=== PATIENT | female | born 1950 | race Caucasian/White ===

== ENCOUNTER 2016-08-27 10:24 | Inpatient (IN) | payer OTHER ==
--- NOTE | ~2016-08-27 | DS ---
Discharge Summary [facility] [address] [place] [place]. [address] NAME: RENATA JONES : 46 STATUS : DIS IN PAT#: [id number] AGE: 66 ADM/REG DATE : 08/27/16 MR#: [id number] REPORT SERV DATE: 09/02/16 DICTATED BY: CE SIMPSON DATE: 09/01/16 REPORT STATUS : Draft TRANSCRIBED BY: MODL DATE: 09/01/16 ADMISSION DATE: 08/27/2016 DISCHARGE DATE: 09/01/2016 DIAGNOSES OF DISCHARGE: 1. Urinary tract infection with urine culture Escherichia coli. 2. Metabolic encephalopathy, resolved. 3. Acute kidney injury on chronic kidney disease, resolved. 4. History of cerebrovascular accident. 5. Obstructive sleep apnea. 6. Diabetes type 2. 7. Chronic diarrhea. 8. History of Clostridium difficile. 9. History of gout. 10.Peripheral arterial disease with history of right carotid artery stent and leg stent. CONSULTANTS ON THE CASE: None. PROCEDURE DONE DURING THIS HOSPITALIZATION: None. TEST DONE DURING THIS HOSPITALIZATION: Include a 2D echo on 09/01/2016 showing normal left ventricular systolic function, ejection fraction 60% and normal right ventricular chamber size and systolic function with mild MR. Also, during this hospitalization, the patient had done CT of brain without contrast on 08/19/[address] of the brain. CT of the abdomen and pelvis showed a mild prominence of the right renal collecting system and proximal ureter, but there are no stones identified within the ureter or urinary bladder. There was a right lower lobe consolidation, questionable atelectasis, bilateral renal cyst, bowel anastomosis on the right abdomen likely ileocolic anastomosis. Chest x-ray, portable, on 08/28/2016, showed mild bibasilarly infiltrates with small left pleural effusion. Repeat chest x-ray on 08/31/2016 show a clear chest x-ray, just atelectasis, and mild central venous congestion. The patient's blood cultures have remained negative at discharge. Her stools for C. diff performed on 08/19/2016 has been negative and her urine cultures grew Klebsiella pneumonia. HOSPITAL COURSE: This is a very pleasant 66-year-old female, patient of Dr. Daren Husain, her primary care provider. She does have a history of chronic diarrhea, evaluated by Dr. Ordoñez in the past, recurrent urinary tract infections, history of diabetes insulin-dependent, chronic kidney disease, COPD, obstructive sleep apnea. She has been admitted on 08/27/2016 with acute kidney injury as well as the changes in the mental status and urinary tract infection. For further details, please see history and physical exam of Dr. Alhaji Cummings. The patient has been admitted to Hospitalist Service. She has been aggressively hydrated and placed on a broad-spectrum antibiotics, initially on Azactam and Flagyl due to a history of Clostridium diff. Her diff came back negative. Her Flagyl has been discontinued and continued on Azactam. The patient has been placed on oxygen and bronchodilator protocol. Her urine cultures have came back with Klebsiella pneumonia. She has been changed to oral antibiotics. Her encephalopathy continued to improve and completely resolved with control Discharge Summary [address] [place]. [address] NAME: RENATA JONES : 46 STATUS : DIS IN PAT#: [id number] AGE: 66 ADM/REG DATE : 08/27/16 MR#: [id number] REPORT SERV DATE: 09/02/16 DICTATED BY: CE SIMPSON DATE: 09/01/16 REPORT STATUS : Draft TRANSCRIBED BY: MARGE DATE: 09/01/16 of the infection as well as correction of her acute renal failure. She did have a 2D echo showing a normal left ventricular systolic function with an ejection fraction of 60% and normal right ventricular chamber size and systolic function. On 09/01/2016, the patient has been ready for discharge. She has been evaluated by Physical Therapy and recommendation for the patient was to go home with home health and home physical therapy. MEDICATIONS AT DISCHARGE: Would include allopurinol 100 p.o. daily, Xanax 1 mg p.o. b.i.d., Norvasc 5 mg at bedtime, Lexapro 20 mg at bedtime, Lasix 40 p.o. daily, gabapentin 900 twice a day, Levemir 22 units subcutaneously twice a day, Requip 4 mg at bedtime, Cozaar 10 mg at bedtime, Aldactone 25 mg at bedtime, Afrin nasal spray at bedtime as needed, as well as Imodium p.r.n., Carbon p.r.n., insulin sliding scale, Humalog and baclofen p.r.n. She will also be discharged on Ceftin 500 p.o. b.i.d. for five more days. We will arrange home health and home PT. We will also arrange a primary care provider follow up with Dr. Daren Husain in one week after discharge with BNP check. That has been discussed extensively with the patient. All the questions have been answered in full. I have spent more than 30 minutes at discharging the patient, Analia Caballero, medication reconciliation, discharge summary, discharge instructions, written prescriptions as well. CF/MODL eC Simpson M.D. / [id number] CC: Lorrie Holt M.D.
--- NOTE | ~2016-08-27 | HP ---
History And Physical [facility] [id number] [place]. [address] NAME: RENATA JONES : 46 STATUS : ADM IN [facility]#: [id number] AGE: 66 ADM/REG DATE : 08/27/16 MR#: [id number] REPORT SERV DATE: 08/27/16 DICTATED BY: HERIBERTO ANTONIO DATE: 08/27/16 REPORT STATUS : Draft TRANSCRIBED BY: MARGE DATE: 08/27/16 DATE OF ADMISSION: 08/27/2016 GI: Dennis Ordoñez M.D. HISTORY OF PRESENT ILLNESS: This is a 66-year-old female, who comes in for change in mental status. The patient has a history of chronic diarrhea which she has been evaluated by Dr. Ordoñez before and they did not believe that it is anything that needs to do a procedure on. The patient also has a history of recurrent UTI, and the daughter is saying that she presented like she is having one of those times when she has the UTI. She also has a history of diabetes, Clostridium difficile, PAD, CKD, COPD, BRENDEN in which she cannot tolerate the CPAP and uses 2 L of oxygen all the time. The patient went to stay with a friend since Tuesday which is 5 days prior to admission and she did not bring her oxygen tank. She worked in the yard 2 days prior to present admission, and she started having increased back pain on top of her chronic back pain which she takes hydrocodone for it. The next day, one day prior to admission, the patient was feeling weak, she just stayed in bed, slept a lot, and then at nighttime, they got worried because she was having chills and talking out of her head. They noted some jerking and they believe it was her nerves, they gave her some Xanax, and she got little bit better in terms of the jerking part. Today, she still was not doing well, so they brought her to the emergency room. In the ER, the patient has a temperature of 103, blood pressure was okay initially but it went down to the 80s. She was given fluids and her mental status, blood pressure got better. We are now going to admit this patient for possible UTI as the urine was cloudy and dirty. She said that she did not have any dysuria until they collected her urine today. It was a clean catch and they did not use any catheter. She also had diarrhea this morning as well. In both ends there was no blood. REVIEW OF SYSTEMS: The patient denies any abdominal pain or chest pain. She only complains of back pain, which is chronic and not like the one that she felt two days ago. She did not have any near syncopal or syncopal episode. She denies any dizziness she felt warm but she did not document any fever prior to coming in here. There are no sweats. There are no new rashes. No new joint pains. There is no cough. She denies any shortness of breath. The rest of the 14-point review of systems is negative except as above. PAST MEDICAL HISTORY: Includes COPD, BRENDEN, recurrent UTI, CKD 3 with baseline creatinine of 1.3 to 1.6, diabetes, PAD with carotid stent on the right, leg stent, irritable bowel syndrome, chronic diarrhea type, CVA in 1998 without any residuals, chronic pain, glaucoma, dyslipidemia, B12 deficiency, history of pancreatitis, gout. She had a lumbar spine surgery, spinal nerve stimulator, right carotid endarterectomy, appendectomy, cholecystectomy, hysterectomy with oophorectomy, partial colectomy, adhesiolysis x4. ALLERGIES: CODEINE. MEDICATIONS: Includes allopurinol, Xanax, Norvasc, Lexapro, TriCor, Lasix, Neurontin, hydrocodone, losartan, Requip, spironolactone. History And Physical [address] [place] [place]. [address] NAME: RENATA JONES : 46 STATUS : ADM IN [facility]#: [id number] AGE: 66 ADM/REG DATE : 08/27/16 MR#: [id number] REPORT SERV DATE: 08/27/16 DICTATED BY: HERIBERTO ANTONIO DATE: 08/27/16 REPORT STATUS : Draft TRANSCRIBED BY: MODL DATE: 08/27/16 FAMILY HISTORY: Father of lung cancer at 74 years of age. Mother of Parkinson disease and stroke at 71 years of age. SOCIAL HISTORY: The patient denies smoking, drinking alcohol, or use recreational drugs. PHYSICAL EXAMINATION: GENERAL: The patient is obese, alert, oriented x3, not in cardiorespiratory distress. VITAL SIGNS: Include a temperature of 103, blood pressure of 139/55, pulse rate of 79, respiration 23, saturating at 98% on 2 L. NECK: She has supple neck. No JVD or carotid bruits. No lymphadenopathy. HEENT: [place] conjunctivae. Anicteric sclerae. No pharyngeal erythema. LUNGS: Clear lungs. No rales. No wheezes. CARDIOVASCULAR: Regular rate and rhythm. No murmurs appreciated. Positive bowel sounds. Soft, nontender. No masses. Fair pulses. No edema. NEURO: Nonlocalizing. LABORATORY DATA: Reveals a pH of 7.41, pCO2 of 22, PO2 of 120 at 20% FiO2. BUN and creatinine of 63 and 2.9, glucose of 284. Alkaline phosphatase of 124, AST of 53 the rest of the chemistry is within acceptable limits. Ammonia 43, lactate 0.6. White count 10.3, H and H of 9.4 and 28.8. The rest of the CBC is within acceptable limits. Urinalysis shows protein of 100, large leukocyte esterase, 26 rbc, greater than 182 wbc. CAT scan of the brain shows no acute intracranial abnormality, atrophy, chronic microvascular white matter ischemic change. Chest x-ray shows cephalization of pulmonary blood flow, representing early volume overload or pulmonary edema. No other acute process demonstrated. ASSESSMENT: 1. Acute toxic encephalopathy with history of cerebrovascular accident. 2. Urinary tract infection. 3. Acute kidney injury on chronic kidney disease 3. 4. Obstructive sleep apnea. 5. Chronic obstructive pulmonary disease. 6. Diabetes with hyperglycemia. 7. Peripheral arterial disease with history of right carotid artery stent and leg stent. 8. History of Clostridium difficile. 9. History of gout. 10.Chronic diarrhea. 11.Irritable bowel syndrome, questionable colitis. PLAN: The patient possibly had a UTI, colitis, or both, causing dehydration and LEE on top of CKD and change in mental status. The patient improved with IVF and her mental status is back to normal. We will admit to telemetry. Continue IVF, but we will use aztreonam and Flagyl as she has a history of Clostridium difficile. Check urine, stool, and blood cultures; monitor creatinine; place on oxygen, bronchodilator; we will continue the diabetic History And Physical [address] [address] NAME: RENATA JONES : 46 STATUS : ADM IN [facility]#: [id number] AGE: 66 ADM/REG DATE : 08/27/16 MR#: [id number] REPORT SERV DATE: 08/27/16 DICTATED BY: HERIBERTO ANTONIO. DATE: 08/27/16 REPORT STATUS : Draft TRANSCRIBED BY: MARGE DATE: 08/27/16 medications. We will do a CT of the abdomen and pelvis, and see if the patient has colitis or any risk factors for causing her to have frequent UTI, this has been explained to the patient in front of the daughter, and they agreed and understood the plan. RAMONE/MARGE Heriberto Antonio M.D. / [id number] CC: Lorrie Wu M.D.
[2016-08-27 10:21] LABS: ALLENS TEST Pos; BE (BASE EXCESS) -9.7 MEQ/L (0 +/- 2.5); CARBOXYHEMOGLOBIN 0.6 % (0-3); HCO3 (ACTUAL BICARBONATE) 13.4 MEQ/L (23-27); INSTRUMENT SERIAL # 8087; METHEMOGLOBIN 0.3 % (0-3); O2 CONTENT 13.7 VOL% (18-24); PCO2 (CO2 TENSION) 22 MMHG (35-45); PO2 (O2 TENSION) 120 MMHG (79-93); SAMPLE Arterial; pH 7.41 (7.37-7.43)
[~2016-08-27 10:24] MED LIST: *UNABLE2; ACTOS45 PO; ADVIL PM PO; AFRIN15 NAS; ASA5GR PO; B121000P IM; B121000P IM/SC; BEN25 PO; CARDURA1 MG PO; CARVEDILOL PO; CAT2 PO; CEFT5 PO; COMBIVENT INH; COREG3 PO; COZAAR100 MG PO; CYMBALTA60 PO; DCN100 PO; DIAMODE2 MG PO; DIOVAN320 MG PO; FLEX PO; FLORASTOR250 MG PO; GOODY'S BODY P1 EACH PO; GOODYS PM1 POW OR; HUMALOG SC; IMOD PO; KLONOPIN WAF2 MG PO; KLOR-CON 1010 MEQ PO; KLOR-CON M1010 MEQ PO; L20 PO; L40 PO; LEVAQUIN750 MG PO; LEVEMFLXPN SC; LEXAPRO10 PO; LEXAPRO20 PO; LIOR10 PO; LOFIB160 PO; MICRO-K10 MEQ PO; MOTRIN IB200 MG PO; NEUR100 PO; NEUR300 PO; NORCO1 TA1 PO; NORCO1 TAB PO; NORV10 PO; NORV5 PO; NOVOLOG SC; O2; PENICILLN VK500 MG PO; PERCOCET1 TA2 PO; PLAVIX PO; POTASSIUM OTC PO; PRAND5 PO; PRAVACHOL40 MG PO; PREV30 PO; PROAIR HFA INH; PROMEGA PO; PROVHFA INH; REQUIP1 PO; REQUIP2 PO; REQUIP4 MG PO; REQUIP5 MG PO; SPIRO25 PO; STERAPRED DS10 MG; TRICOR145 PO; TRILIPIX135 MG PO; X5 PO; XANAX XR1 MG PO; XANAX1 MG PO; XANAX2 MG PO; Z100 PO; vancomycin PO
[2016-08-27 11:23] LABS: BASOPHILS 0.5 %; BASOPHILS ABSOLUTE 0.05 10/3/uL (0.0-0.16); EOSINOPHILS 0.3 %; EOSINOPHILS ABSOLUTE 0.03 10/3/uL (0.0-0.53); HEMOGLOBIN 9.4 g/dL (12.0-16.0); IMMATURE GRANULOCYTES 0.5 %; LYMPHOCYTES 12.8 %; LYMPHOCYTES ABSOLUTE 1.32 10/3/uL (0.67-4.30); MEAN CORPUS HGB CONC 32.6 g/dL (32.0-36.0); MEAN CORPUSCULAR HEMOGLOB 31.4 pg (26.0-34.0); MEAN CORPUSCULAR VOLUME 96.3 fL (80-100); MEAN PLATELET VOLUME 10.3 fL (9.2-13.0); MONOCYTES 6.9 %; MONOCYTES ABSOLUTE 0.71 10/3/uL (0.21-1.20); NEUTROPHILS ABSOLUTE 8.16 10/3/uL (2.02-8.40); PLATELET COUNT 306 10/3/uL (150-400); RED CELL COUNT 2.99 10/6/uL (4.0-5.6)
[2016-08-27 11:24] LABS: ER CBC TAT 0 Hrs 07 Mins; HEMATOCRIT 28.8 % (36.0-48.0); IMMATURE GRANULOCYTES ABSOLUTE 0.05 10/3/uL (0.0-0.11); MANUAL DIFF NO %; RBC DISTRIBUTION WIDTH 16.6 % (12.0-16.0); WHITE BLOOD CELLS 10.3 10/3/uL (4.5-10.5)
[2016-08-27 11:33] LABS: INTERNATIONAL NORMAL RATI 1.2 UNITS (-); PARTIAL THROMBO TIME 31.2 SEC (22.5-37.2)
[2016-08-27 11:37] LABS: ALBUMIN 2.9 G/DL (3.5-5.0); CHLORIDE, SERUM 106 MMOL/L (96-112); POTASSIUM, SERUM 4.1 MMOL/L (3.5-5.3); SGOT(AST) 53 U/L (5-40); SGPT(ALT) 22 U/L (5-65); SODIUM, SERUM 136 MMOL/L (135-148); TOTAL BILIRUBIN 0.5 MG/DL (0-1.2)
[2016-08-27 11:39] LABS: A/G RATIO 0.6 (0.7-1.9); ALKALINE PHOSPHATASE 124 U/L (45-117); BUN (BLOOD UREA NITROGEN) 63 MG/DL (6-23); CO2 (CARBON DIOXIDE) 17 MMOL/L (24-34); GFR AFRICAN AMERICAN 19 ML/MIN (>=60); GFR NON AFRICAN AMERICAN 16 ML/MIN (>=60); GLOBULIN 5.2 G/DL (2.5-4.1); GLUCOSE, SERUM 284 MG/DL (60-99); TOTAL PROTEIN 8.1 G/DL (6.0-8.5)
[2016-08-27 11:40] LABS: LACTATE 0.6 MMOL/L (0.3-2.4)
[2016-08-27 11:49] LABS: BAND NEUTROPHILS 8 %; ER DIFF TAT 0 Hrs 32 Mins; LYMPHOCYTES 11 %; LYMPHOCYTES ABSOLUTE (CALC) 1.13 10/3/uL (0.67-4.30); MONOCYTES 5 %; MONOCYTES ABSOLUTE (CALC) 0.52 10/3/uL (0.21-1.20); NEUTROPHILS ABSOLUTE (CALC) 8.65 10/3/uL (2.02-8.40); PLATELET ESTIMATE ADQ (ADEQUATE); RBC MORPHOLOGY NORM (NORMAL); SEGMENTED NEUTROPHIL (0) 76 %; TOTAL NUCLEATED CELLS 100
[2016-08-27 11:59] LABS: ASCORBIC ACID (UR NOT ORDER) NEG (NEG); BILIRUBIN, URINE NEGATIVE (NEG); ER URINALYSIS TAT 0 Hrs 29 Mins; KETONE, URINE NEGATIVE (NEG); LEUKOCYTE ESTERASE(NOT OR LARGE (NEG); NITRITE (URINE) NEG (NEG); WBC (NOT ORDERED) (RFLEX) > 182 (0-5)
[2016-08-27 12:40] LABS: PROCALCITONIN 0.89 ng/mL (<0.5)
[2016-08-27] MEDS ORDERED: LIOR10 PO (13:59)
[2016-08-28 06:10] LABS: BASOPHILS 0.3 %; BASOPHILS ABSOLUTE 0.04 10/3/uL (0.0-0.16); EOSINOPHILS 0.1 %; EOSINOPHILS ABSOLUTE 0.01 10/3/uL (0.0-0.53); HEMOGLOBIN 10.5 g/dL (12.0-16.0); IMMATURE GRANULOCYTES 0.5 %; IMMATURE GRANULOCYTES ABSOLUTE 0.06 10/3/uL (0.0-0.11); LYMPHOCYTES 18.4 %; LYMPHOCYTES ABSOLUTE 2.13 10/3/uL (0.67-4.30); MEAN CORPUS HGB CONC 32.1 g/dL (32.0-36.0); MEAN CORPUSCULAR HEMOGLOB 31.4 pg (26.0-34.0); MEAN CORPUSCULAR VOLUME 97.9 fL (80-100); MEAN PLATELET VOLUME 9.7 fL (9.2-13.0); MONOCYTES 8.8 %; MONOCYTES ABSOLUTE 1.02 10/3/uL (0.21-1.20); NEUTROPHILS 71.9 %; NEUTROPHILS ABSOLUTE 8.33 10/3/uL (2.02-8.40); PLATELET COUNT 300 10/3/uL (150-400); RBC DISTRIBUTION WIDTH 16.3 % (12.0-16.0); RED CELL COUNT 3.34 10/6/uL (4.0-5.6); WHITE BLOOD CELLS 11.6 10/3/uL (4.5-10.5)
[2016-08-28 06:12] LABS: HEMATOCRIT 32.7 % (36.0-48.0); MANUAL DIFF NO %
[2016-08-28 06:19] LABS: BUN (BLOOD UREA NITROGEN) 40 MG/DL (6-23); CALCIUM, SERUM 9.7 MG/DL (8.5-10.4); CHLORIDE, SERUM 112 MMOL/L (96-112); CO2 (CARBON DIOXIDE) 19 MMOL/L (24-34); CREATININE 1.92 MG/DL (0.55-1.02); GFR AFRICAN AMERICAN 30 ML/MIN (>=60); GFR NON AFRICAN AMERICAN 26 ML/MIN (>=60); GLUCOSE, SERUM 214 MG/DL (60-99); POTASSIUM, SERUM 3.9 MMOL/L (3.5-5.3); SODIUM, SERUM 142 MMOL/L (135-148)
[2016-08-29 05:48] LABS: BASOPHILS 0.3 %; BASOPHILS ABSOLUTE 0.04 10/3/uL (0.0-0.16); EOSINOPHILS 0.4 %; EOSINOPHILS ABSOLUTE 0.05 10/3/uL (0.0-0.53); HEMATOCRIT 28.8 % (36.0-48.0); HEMOGLOBIN 9.2 g/dL (12.0-16.0); IMMATURE GRANULOCYTES 0.6 %; IMMATURE GRANULOCYTES ABSOLUTE 0.07 10/3/uL (0.0-0.11); LYMPHOCYTES 14.4 %; LYMPHOCYTES ABSOLUTE 1.65 10/3/uL (0.67-4.30); MEAN CORPUS HGB CONC 31.9 g/dL (32.0-36.0); MEAN CORPUSCULAR HEMOGLOB 30.8 pg (26.0-34.0); MEAN CORPUSCULAR VOLUME 96.3 fL (80-100); MEAN PLATELET VOLUME 10.1 fL (9.2-13.0); MONOCYTES 8.4 %; MONOCYTES ABSOLUTE 0.96 10/3/uL (0.21-1.20); NEUTROPHILS 75.9 %; NEUTROPHILS ABSOLUTE 8.71 10/3/uL (2.02-8.40); PLATELET COUNT 311 10/3/uL (150-400); RBC DISTRIBUTION WIDTH 16.3 % (12.0-16.0); RED CELL COUNT 2.99 10/6/uL (4.0-5.6); WHITE BLOOD CELLS 11.5 10/3/uL (4.5-10.5)
[2016-08-29 05:49] LABS: MANUAL DIFF NO %
[2016-08-29 06:03] LABS: CALCIUM, SERUM 9.4 MG/DL (8.5-10.4); CHLORIDE, SERUM 110 MMOL/L (96-112); CO2 (CARBON DIOXIDE) 19 MMOL/L (24-34); CREATININE 1.44 MG/DL (0.55-1.02); GFR AFRICAN AMERICAN 43 ML/MIN (>=60); GFR NON AFRICAN AMERICAN 37 ML/MIN (>=60); POTASSIUM, SERUM 3.6 MMOL/L (3.5-5.3); SODIUM, SERUM 139 MMOL/L (135-148)
[2016-08-29 06:04] LABS: BUN (BLOOD UREA NITROGEN) 23 MG/DL (6-23); GLUCOSE, SERUM 135 MG/DL (60-99)
[2016-08-30 07:39] LABS: HEMATOCRIT 28.9 % (36.0-48.0); HEMOGLOBIN 9.3 g/dL (12.0-16.0); MEAN CORPUS HGB CONC 32.2 g/dL (32.0-36.0); MEAN CORPUSCULAR HEMOGLOB 30.9 pg (26.0-34.0); MEAN PLATELET VOLUME 9.9 fL (9.2-13.0); PLATELET COUNT 314 10/3/uL (150-400); RBC DISTRIBUTION WIDTH 16.1 % (12.0-16.0); RED CELL COUNT 3.01 10/6/uL (4.0-5.6); WHITE BLOOD CELLS 12.3 10/3/uL (4.5-10.5)
[2016-08-30 07:40] LABS: MANUAL DIFF YES %
[2016-08-30 07:48] LABS: BUN (BLOOD UREA NITROGEN) 17 MG/DL (6-23); CHLORIDE, SERUM 114 MMOL/L (96-112); CO2 (CARBON DIOXIDE) 18 MMOL/L (24-34); CPK 165 U/L (0-200); CREATININE 1.07 MG/DL (0.55-1.02); GFR AFRICAN AMERICAN 62 ML/MIN (>=60); GFR NON AFRICAN AMERICAN 53 ML/MIN (>=60); GLUCOSE, SERUM 97 MG/DL (60-99); POTASSIUM, SERUM 3.3 MMOL/L (3.5-5.3); SODIUM, SERUM 141 MMOL/L (135-148); TROPONIN I <0.02 NG/ML (<0.05)
[2016-08-30 08:07] LABS: BAND NEUTROPHILS 15 %; EOSINOPHILS 2 %; EOSINOPHILS ABSOLUTE (CALC) 0.25 10/3/uL (0.0-0.53); IMMATURE GRANS ABSOLUTE (CALC) 0.12 10/3/uL (0.0-0.11); LYMPHOCYTES 9 %; LYMPHOCYTES ABSOLUTE (CALC) 1.11 10/3/uL (0.67-4.30); METAMYELOCYTES 1 %; MONOCYTES 8 %; MONOCYTES ABSOLUTE (CALC) 0.98 10/3/uL (0.21-1.20); NEUTROPHILS ABSOLUTE (CALC) 9.84 10/3/uL (2.02-8.40); PLATELET ESTIMATE ADQ (ADEQUATE); SEGMENTED NEUTROPHIL (0) 65 %; TOTAL NUCLEATED CELLS 100
[2016-08-30 08:08] LABS: POLYCHROMASIA 1+ (2-5/OIF) (0-1/OIF)
[2016-08-31 06:44] LABS: BASOPHILS 0.3 %; BASOPHILS ABSOLUTE 0.03 10/3/uL (0.0-0.16); EOSINOPHILS 3.6 %; EOSINOPHILS ABSOLUTE 0.34 10/3/uL (0.0-0.53); HEMATOCRIT 26.7 % (36.0-48.0); HEMOGLOBIN 8.4 g/dL (12.0-16.0); IMMATURE GRANULOCYTES ABSOLUTE 0.19 10/3/uL (0.0-0.11); LYMPHOCYTES 16.2 %; LYMPHOCYTES ABSOLUTE 1.53 10/3/uL (0.67-4.30); MEAN CORPUS HGB CONC 31.5 g/dL (32.0-36.0); MEAN CORPUSCULAR HEMOGLOB 30.2 pg (26.0-34.0); MONOCYTES 6.2 %; MONOCYTES ABSOLUTE 0.59 10/3/uL (0.21-1.20); NEUTROPHILS 71.7 %; NEUTROPHILS ABSOLUTE 6.78 10/3/uL (2.02-8.40); PLATELET COUNT 352 10/3/uL (150-400); RBC DISTRIBUTION WIDTH 16.4 % (12.0-16.0); RED CELL COUNT 2.78 10/6/uL (4.0-5.6); WHITE BLOOD CELLS 9.5 10/3/uL (4.5-10.5)
[2016-08-31 06:45] LABS: MANUAL DIFF NO %
[2016-08-31 07:01] LABS: BUN (BLOOD UREA NITROGEN) 17 MG/DL (6-23); CALCIUM, SERUM 9.5 MG/DL (8.5-10.4); CHLORIDE, SERUM 112 MMOL/L (96-112); CO2 (CARBON DIOXIDE) 20 MMOL/L (24-34); CREATININE 1.01 MG/DL (0.55-1.02); GFR AFRICAN AMERICAN 66 ML/MIN (>=60); GFR NON AFRICAN AMERICAN 57 ML/MIN (>=60); GLUCOSE, SERUM 77 MG/DL (60-99); POTASSIUM, SERUM 3.4 MMOL/L (3.5-5.3); SODIUM, SERUM 141 MMOL/L (135-148); TROPONIN I <0.02 NG/ML (<0.05)
[2016-08-31 10:36] LABS: FERRITIN 258 NG/ML (8-252)
[2016-08-31 10:39] LABS: % IRON SAT 14 % (20-50); FOLATE 9.3 NG/ML (>5.2); IRON BINDING CAPACITY 236 MCG/DL (225-410); IRON, SERUM 34 MCG/DL (35-150)
[2016-09-01 06:04] LABS: BASOPHILS 1.1 %; BASOPHILS ABSOLUTE 0.08 10/3/uL (0.0-0.16); BUN (BLOOD UREA NITROGEN) 21 MG/DL (6-23); CALCIUM, SERUM 9.6 MG/DL (8.5-10.4); CHLORIDE, SERUM 112 MMOL/L (96-112); CO2 (CARBON DIOXIDE) 20 MMOL/L (24-34); CREATININE 0.99 MG/DL (0.55-1.02); EOSINOPHILS ABSOLUTE 0.44 10/3/uL (0.0-0.53); GFR AFRICAN AMERICAN 68 ML/MIN (>=60); GFR NON AFRICAN AMERICAN 59 ML/MIN (>=60); GLUCOSE, SERUM 109 MG/DL (60-99); HEMATOCRIT 28.4 % (36.0-48.0); HEMOGLOBIN 8.9 g/dL (12.0-16.0); IMMATURE GRANULOCYTES 3.7 %; IMMATURE GRANULOCYTES ABSOLUTE 0.27 10/3/uL (0.0-0.11); LYMPHOCYTES 23.3 %; LYMPHOCYTES ABSOLUTE 1.72 10/3/uL (0.67-4.30); MEAN CORPUS HGB CONC 31.3 g/dL (32.0-36.0); MEAN CORPUSCULAR HEMOGLOB 30.1 pg (26.0-34.0); MEAN CORPUSCULAR VOLUME 95.9 fL (80-100); MEAN PLATELET VOLUME 9.8 fL (9.2-13.0); MONOCYTES 4.9 %; MONOCYTES ABSOLUTE 0.36 10/3/uL (0.21-1.20); NEUTROPHILS ABSOLUTE 4.51 10/3/uL (2.02-8.40); PLATELET COUNT 380 10/3/uL (150-400); POTASSIUM, SERUM 3.5 MMOL/L (3.5-5.3); RBC DISTRIBUTION WIDTH 15.8 % (12.0-16.0); RED CELL COUNT 2.96 10/6/uL (4.0-5.6); SODIUM, SERUM 140 MMOL/L (135-148); WHITE BLOOD CELLS 7.4 10/3/uL (4.5-10.5)
[2016-09-01 06:06] LABS: MANUAL DIFF NO %
[2016-09-01] MEDS ORDERED: CEFT5 PO (11:48)
[2016-09-01] MEDS ORDERED: FLORASTOR250 MG PO (11:48)
[2016-09-03] MEDS ORDERED: HUMULIN R1 ML SC (09:08)
== END 2016-09-01 12:42 | disposition home health service (06) | DRG 682 ==
LOC: ER 10:24 → 2SO 13:37
PROVIDERS: Hospitalist; Internal Medicine
DX: N17.9 Acute kidney failure, unspecified (principal); G92 Toxic encephalopathy; J96.11 Chronic respiratory failure with hypoxia; E11.22 Type 2 diabetes mellitus with diabetic chronic kidney disease; N39.0 Urinary tract infection, site not specified; Z99.81 Dependence on supplemental oxygen; E11.65 Type 2 diabetes mellitus with hyperglycemia; J44.9 Chronic obstructive pulmonary disease, unspecified; K58.0 Irritable bowel syndrome with diarrhea; G89.29 Other chronic pain; G47.33 Obstructive sleep apnea (adult) (pediatric); H40.9 Unspecified glaucoma; N18.3 Chronic kidney disease, stage 3 (moderate); M54.9 Dorsalgia, unspecified; I73.9 Peripheral vascular disease, unspecified; E86.0 Dehydration; Z79.891 Long term (current) use of opiate analgesic; Z79.899 Other long term (current) drug therapy; Z86.73 Personal history of transient ischemic attack (TIA), and cerebral infarction without residual deficits; Z87.440 Personal history of urinary (tract) infections; Z88.5 Allergy status to narcotic agent; B96.20 Unspecified Escherichia coli [E. coli] as the cause of diseases classified elsewhere; Z79.4 Long term (current) use of insulin
CPT/HCPCS: 36600; 70450; 71010; 74176; 80048; 80053; 81001; 82140; 82550; 82607; 82728; 82746; 82805; 82962; 83540; 83550; 83605; 83735; 84132; 84145; 84484; 85025; 85610; 85730; 87040; 87077; 87086; 87186; 87493; 87493-59; 93005; 93306; 94640; 96365; 96366; 96375; 97116-GP; 97161-GP; 99285; A9270-GY; J0360; J0456

== ENCOUNTER 2016-10-05 04:53 | Day surgery (SDC) | payer OTHER ==
[~2016-10-05 04:53] MED LIST changes: +HUMULIN R1 ML SC
== END 2016-10-05 10:00 | disposition home or self-care (01) ==
LOC: SDC 04:53
PROVIDERS: Orthopaedic Surgery
PROC: B01BZZZ Fluoroscopy of Spinal Cord (ICD-10-PCS; 2016-10-05)
PROC: 3E0R3BZ Introduction of Anesthetic Agent into Spinal Canal, Percutaneous Approach (ICD-10-PCS; principal; 2016-10-05 08:00)
DX: M54.16 Radiculopathy, lumbar region (principal); E11.9 Type 2 diabetes mellitus without complications; F41.9 Anxiety disorder, unspecified; F32.9 Major depressive disorder, single episode, unspecified; M19.90 Unspecified osteoarthritis, unspecified site; I11.0 Hypertensive heart disease with heart failure; G47.30 Sleep apnea, unspecified; I50.9 Heart failure, unspecified; J44.9 Chronic obstructive pulmonary disease, unspecified; I73.9 Peripheral vascular disease, unspecified; G62.9 Polyneuropathy, unspecified; Z79.4 Long term (current) use of insulin; Z79.899 Other long term (current) drug therapy; Z90.49 Acquired absence of other specified parts of digestive tract; Z90.710 Acquired absence of both cervix and uterus; Z98.890 Other specified postprocedural states; Z98.41 Cataract extraction status, right eye; Z98.42 Cataract extraction status, left eye; Z88.5 Allergy status to narcotic agent; Z88.8 Allergy status to other drugs, medicaments and biological substances; Z87.891 Personal history of nicotine dependence; Z86.73 Personal history of transient ischemic attack (TIA), and cerebral infarction without residual deficits
CPT/HCPCS: 82962; J1040; J2250; J3010; Q9967

== ENCOUNTER 2016-10-22 05:06 | Day surgery (SDC) | payer OTHER | END 2016-10-22 18:46 | disposition home or self-care (01) | LOC: SDC 05:06 | PROVIDERS: Orthopaedic Surgery | PROC: 3E0R3BZ Introduction of Anesthetic Agent into Spinal Canal, Percutaneous Approach (ICD-10-PCS; 2016-10-22) | PROC: B01BYZZ Fluoroscopy of Spinal Cord using Other Contrast (ICD-10-PCS; 2016-10-22) | PROC: 3E0R33Z Introduction of Anti-inflammatory into Spinal Canal, Percutaneous Approach (ICD-10-PCS; principal; 2016-10-22 09:15) | DX: M48.06 Spinal stenosis, lumbar region (principal); Z79.4 Long term (current) use of insulin; Z79.891 Long term (current) use of opiate analgesic; Z79.899 Other long term (current) drug therapy; Z98.41 Cataract extraction status, right eye; Z98.42 Cataract extraction status, left eye; Z90.49 Acquired absence of other specified parts of digestive tract; Z90.710 Acquired absence of both cervix and uterus; Z98.890 Other specified postprocedural states; Z90.89 Acquired absence of other organs | CPT/HCPCS: 82962; J1040; J2250; J3010; Q9967 ==